=== PATIENT | female | born 1980 | race Caucasian/White ===

== ENCOUNTER 2020-09-11 17:30 | Emergency (ER) | payer SELFPAY ==
[~2020-09-11] VITALS: Ht 157.5 cm; Wt 59.0 kg
--- NOTE | 2020-09-11 17:40 | NUR ---
CAME IN FOR RIGHT SIDED NECK PAIN X 4 DAYS ,DENIES ANY TRAUMA. TO ER BED 9, HOOKED TO MONITOR. VSS. AWAITING MD MINOR
--- NOTE | 2020-09-11 18:04 | NUR ---
DR ALFONSO AT BEDSIDE
[2020-09-11 18:22] LABS: BASOPHILS % (AUTO) 0.8 % (0.0-2.0); EOSINOPHILS % (AUTO) 2.8 % (0.0-6.0); HEMATOCRIT 33 % (33-45); HEMOGLOBIN 10.4 g/dL (11.5-14.8); LYMPHOCYTES # (AUTO) 1.1 /CMM (0.8-4.8); LYMPHOCYTES % (AUTO) 21.5 % (20.0-44.0); MEAN CORPUSCULAR HGB CONC 32 g/dl (31.0-36.0); MEAN CORPUSCULAR VOLUME 84 fL (82-100); MONOCYTES # (AUTO) 0.6 /CMM (0.1-1.30); NEUTROPHILS # (AUTO) 3.1 /CMM (1.8-8.9); NEUTROPHILS % (AUTO) 62.9 % (43.0-81.0); PLATELET COUNT (AUTO) 236 /CMM (150-450); RED BLOOD CELL COUNT(AUTO) 3.89 MIL/uL (4.0-5.2)
[2020-09-11 18:38] LABS: ALANINE AMINOTRANSFERASE 24 U/L (12-78); ALBUMIN 3.3 g/dL (3.4-5.0); ALKALINE PHOSPHATASE 54 U/L (46-116); ASPARTATE AMINOTRANSFERASE 21 U/L (15-37); BILIRUBIN,DIRECT 0.1 mg/dL (0.0-0.2); BILIRUBIN,TOTAL 0.2 mg/dL (0.2-1.0); CALCIUM, SERUM 8.5 mg/dL (8.5-10.1); CARBON DIOXIDE 24 mmol/L (21-32); CHLORIDE 105 mmol/L (98-107); CREATININE 0.7 mg/dL (0.6-1.3); GLUCOSE 90 mg/dL (74-106); LIPASE 102 U/L (73-393); POTASSIUM 3.9 mmol/L (3.5-5.1); SODIUM SERUM 136 mmol/L (136-145); TOTAL PROTEIN, SERUM 7.5 g/dL (6.4-8.2); UREA NITROGEN, BLOOD 15 mg/dL (7-18)
[2020-09-11] MEDS ORDERED: IOHEXOL-300 100 ML VIAL IV ONE (18:41)
[2020-09-11] MEDS ORDERED: IV NS 0.9% 250 ML IV ONE (18:41)
[2020-09-11] MEDS ORDERED: CT SWABBABLE VALVE TRANS SET 1 EA INFUS.SET MC ONE (18:41)
[2020-09-11] MEDS ORDERED: ACETAMINOPHEN 325 MG TABLET ONE (18:48)
--- NOTE | 2020-09-11 18:54 | NUR ---
RECEIVED VERBAL ORDER FROM DR ALFONSO OF TORADOL 15MG IVP, CARRIED OUT
[2020-09-11] MEDS ORDERED: KETOROLAC TROMETHAMINE 15 MG/ML VIAL ONE (18:55)
[2020-09-11] MEDS: ACETAMINOPHEN 325 MG TABLET PO ONE (18:56)
[2020-09-11] MEDS: KETOROLAC TROMETHAMINE INJ 30 MG/ML VIAL IV ONE (18:59)
--- NOTE | 2020-09-11 19:10 | NUR ---
patient refuses to be brought to CT scan unless given pain medication
--- NOTE | 2020-09-11 19:43 | NUR ---
report given to richard crandall for lisbeth
--- NOTE | 2020-09-11 19:59 | NUR ---
PATIENT SPOKE WITH ROSALEE BARTHOLOMEW REGARDING, "I WILL GO TO CT IF THAT IS WHAT IT TAKES TO GET MY PAIN MED BECAUSE I CAN'T EVEN SWALLOW RIGHT NOW".
--- NOTE | 2020-09-11 20:00 | NUR ---
PATIENT TAKEN TO CT VIA GURNEY.
--- NOTE | 2020-09-11 20:09 | NUR ---
PATIENT RETURNED FROM CT.
[2020-09-11] MEDS ORDERED: NAPR-1009 PO (21:09)
[2020-09-11] MEDS ORDERED: HYDR-4384 PO (21:09)
[2020-09-11] MEDS ORDERED: AMOX-430 PO (21:09)
[2020-09-11] MEDS ORDERED: AMOX/CLAVULANATE 875 MG TABLET ONE (21:11)
[2020-09-11] MEDS ORDERED: HYDROCODONE/APAP 5/325MG TABLET ONE (21:11)
[2020-09-11] MEDS ORDERED: NAPROXEN 250 MG TABLET ONE (21:11)
[2020-09-11] MEDS: NAPROXEN 500 MG TABLET PO SCH (21:16)
[2020-09-11] MEDS: AMOX/CLAVULANATE 875 MG TABLET PO ONE (21:16)
[2020-09-11] MEDS: HYDROCODONE/APAP 5/325MG TABLET PO ONE (21:16)
--- NOTE | 2020-09-11 21:18 | NUR ---
PATIENT CALLING FOR SON TO PICK HER UP.
[2020-09-11 21:37] VITALS: BP 123/75
== END 2020-09-11 21:37 | disposition home or self-care (01) ==
LOC: ER 17:36
DX: J03.90 Acute tonsillitis, unspecified (principal); R07.0 Pain in throat; M32.9 Systemic lupus erythematosus, unspecified; Z79.899 Other long term (current) drug therapy
CPT/HCPCS: 36415; 70491; 80048; 80076; 83690; 84484; 84703; 85025; 96374; 99285; J1885; J7050; Q9967

== ENCOUNTER 2021-09-05 07:07 | Emergency (ER) | payer SELFPAY ==
[~2021-09-05] VITALS: Ht 157.5 cm; Wt 59.0 kg
[~2021-09-05 07:07] MED LIST: AMOX-430 PO; HYDR-4384 PO; NAPR-1009 PO
--- NOTE | 2021-09-05 07:25 | NUR ---
BIB SELF C/O CHEST PAIN RADIATING TO L ARM PS 10/10 AND L LEG PAIN SINCE LAST NIGHT. ADMITS SOB. PT REPORTS "EVERYTHING HURTS AND I HAVE LUPUS. AAOX4, BREATHING EVEN AND UNLABORED. SKIN WARM AND DRY. ASSISTED TO ER BE 12, HELPED TO GOWN. ON MONITOR.
[2021-09-05] MEDS ORDERED: MORPHINE SULFATE INJ 4 MG/ML DISP.SYRIN ONE (08:29)
[2021-09-05] MEDS ORDERED: KETOROLAC TROMETHAMINE INJ 30 MG/ML VIAL IV ONE (08:30)
[2021-09-05] MEDS ORDERED: MORPHINE SULFATE INJ 2 MG/ML DISP.SYRIN IV ONE (08:30)
--- NOTE | 2021-09-05 08:30 | NUR ---
YOLIS SAMPLE OBTAINED AND HANDED TO LAB
[2021-09-05 08:36] LABS: BASOPHILS % (AUTO) 0.3 % (0.0-2.0); EOSINOPHILS % (AUTO) 0.9 % (0.0-6.0); HEMATOCRIT 31 % (33-45); HEMOGLOBIN 10.2 g/dL (11.5-14.8); LYMPHOCYTES # (AUTO) 0.3 K/uL (0.8-4.8); LYMPHOCYTES % (AUTO) 6.4 % (20.0-44.0); MEAN CORPUSCULAR HGB CONC 33 g/dl (31.0-36.0); MEAN CORPUSCULAR VOLUME 86 fL (82-100); MONOCYTES # (AUTO) 0.6 K/uL (0.1-1.30); NEUTROPHILS # (AUTO) 4.3 K/uL (1.8-8.9); NEUTROPHILS % (AUTO) 81.4 % (43.0-81.0); PLATELET COUNT (AUTO) 242 K/uL (150-450); RED BLOOD CELL COUNT(AUTO) 3.66 MIL/uL (4.0-5.2); WHITE BLOOD COUNT (AUTO) 5.3 K/uL (4.3-11.0)
[2021-09-05 08:53] LABS: D-DIMER 0.3 mg/L(FEU (0.17-0.50)
[2021-09-05 09:12] LABS: CALCIUM, SERUM 9.4 mg/dL (8.5-10.1); CARBON DIOXIDE 22 mmol/L (21-32); CHLORIDE 103 mmol/L (98-107); CREATININE 0.8 mg/dL (0.6-1.3); GLUCOSE 91 mg/dL (74-106); POTASSIUM 3.9 mmol/L (3.5-5.1); SODIUM SERUM 138 mmol/L (136-145); UREA NITROGEN, BLOOD 9 mg/dL (7-18)
[2021-09-05] MEDS ORDERED: IV NS 0.9% 250 ML IV ONE (09:16)
[2021-09-05] MEDS ORDERED: IOHEXOL-350 100 ML VIAL IV ONE (09:16)
[2021-09-05] MEDS ORDERED: HYDROMORPHONE 1 MG/1 ML DISP.SYRIN ONE (09:17)
[2021-09-05] MEDS ORDERED: HYDROMORPHONE 1 MG/1 ML DISP.SYRIN IV ONE (09:30)
[2021-09-05] MEDS ORDERED: ONDANSETRON HCL/PF 4 MG/2 ML VIAL ONE (09:36)
--- NOTE | 2021-09-05 09:37 | NUR ---
PT LAYIGN IN BED, VS STABLE
[2021-09-05] MEDS ORDERED: ONDANSETRON HCL/PF 4 MG/2 ML VIAL IM ONE (10:00)
--- NOTE | 2021-09-05 10:46 | NUR ---
VS STABLE, HEAD OF BED ADJUISTED FOR COMFORT, ADDITIONAL BLANKETS GIVEN
--- NOTE | 2021-09-05 11:07 | NUR ---
PT CONTINUES TO C/O GENERALIZED PAIN. MD BENTON
[2021-09-05] MEDS ORDERED: TRAMADOL HCL 50 MG TABLET PO ONE (11:30)
[2021-09-05] MEDS ORDERED: TRAMADOL HCL 50 MG TABLET ONE (11:36)
--- NOTE | 2021-09-05 11:44 | NUR ---
DR LAWRENCE AT BEDSIDE
[2021-09-05] MEDS ORDERED: HYDR-4209 PO (11:51)
[2021-09-05] MEDS ORDERED: PRED50TA PO (11:51)
[2021-09-05] MEDS ORDERED: methylPREDNISolone SOD SUCC 125 MG/2ML VIAL ONE (11:58)
[2021-09-05] MEDS ORDERED: methylPREDNISolone SOD SUCC 125 MG/2ML VIAL IV ONE (12:00)
--- NOTE | 2021-09-05 12:00 | NUR ---
PT REPORTS THAT IMPROVED. PS 01/28. WILL CONTINUE TO MONITOR
--- NOTE | 2021-09-05 12:15 | NUR ---
Patient discharged to home in stable condition. Written and verbal after care instructions given. Patient verbalizes understanding of instruction.
--- NOTE | 2021-09-05 12:15 | NUR ---
IV removed. Catheter intact and site benign. Pressure and 4x4 applied to site. No bleeding noted.
[2021-09-05 12:18] VITALS: BP 110/76
== END 2021-09-05 12:19 | disposition home or self-care (01) ==
LOC: ER 07:17
DX: R07.89 Other chest pain (principal); M79.606 Pain in leg, unspecified; M32.9 Systemic lupus erythematosus, unspecified; Z79.899 Other long term (current) drug therapy
CPT/HCPCS: 36415; 71045; 71275; 80048; 83880; 84484; 84702; 85025; 85378; 85730; 93005 ×3; 93970; 96374; 96375; 99291; J1170; J2270; J2405; J2930; J7050; Q9967

== ENCOUNTER 2021-10-11 18:44 | Emergency (ER) | payer MEDICAID ==
[~2021-10-11] VITALS: Ht 157.5 cm; Wt 61.2 kg
[~2021-10-11 18:44] MED LIST changes: +HYDR-4209 PO; +PRED50TA PO
--- NOTE | 2021-10-11 19:10 | NUR ---
URINE SAMPLE SENT TO LAB
--- NOTE | 2021-10-11 19:20 | NUR ---
KRYSTEN THIS 41YO FEMALE PATIENT AMBULATORY. CC OF EPIGASTRIC PAIN X 1 MONTH, WITH BLE PAIN X 3 DAYS FOLLOWING TRIP TO [place] WITH 5 HOURS FLY TIME. PATIENT IS ON 10/10 PAIN SCALE ON BLE AREA AND ABDOMINAL PAIN
[2021-10-11] MEDS ORDERED: ONDANSETRON HCL/PF 4 MG/2 ML VIAL IVP ONE (19:30)
[2021-10-11] MEDS ORDERED: methylPREDNISolone SOD SUCC 125 MG/2ML VIAL IV ONE (19:30)
--- NOTE | 2021-10-11 19:39 | NUR ---
LEFT FOREARM G20 IV CANNULA INSERTED. BLOOD DRAWN AND SENT TO LAB
[2021-10-11] MEDS ORDERED: ONDANSETRON HCL/PF 4 MG/2 ML VIAL ONE (19:47)
[2021-10-11] MEDS ORDERED: MORPHINE SULFATE INJ 4 MG/ML DISP.SYRIN ONE (19:47)
[2021-10-11] MEDS ORDERED: methylPREDNISolone SOD SUCC 125 MG/2ML VIAL ONE (19:47)
[2021-10-11] MEDS: MORPHINE SULFATE INJ 2 MG/ML DISP.SYRIN IV ONE ×2 (20:00→20:25)
[2021-10-11] MEDS ORDERED: LIDOCAINE VISCOUS 2% UD 15 ML UDC ONE (20:25)
[2021-10-11] MEDS ORDERED: MAG HYDROX/AL HYDROX/SIMETH 30 ML UDC ONE (20:25)
[2021-10-11 20:28] LABS: BASOPHILS # (AUTO) 0.1 K/uL (0.0-0.2); BASOPHILS % (AUTO) 0.8 % (0.0-2.0); EOSINOPHILS % (AUTO) 3.2 % (0.0-6.0); HEMATOCRIT 32 % (33-45); HEMOGLOBIN 10.2 g/dL (11.5-14.8); LYMPHOCYTES % (AUTO) 26.1 % (20.0-44.0); MEAN CORPUSCULAR HGB CONC 33 g/dl (31.0-36.0); MEAN CORPUSCULAR VOLUME 84 fL (82-100); MONOCYTES # (AUTO) 0.8 K/uL (0.1-1.30); MONOCYTES % (AUTO) 10.7 % (2.0-12.0); NEUTROPHILS # (AUTO) 4.5 K/uL (1.8-8.9); NEUTROPHILS % (AUTO) 59.2 % (43.0-81.0); PLATELET COUNT (AUTO) 355 K/uL (150-450); RED BLOOD CELL COUNT(AUTO) 3.73 MIL/uL (4.0-5.2); WHITE BLOOD COUNT (AUTO) 7.6 K/uL (4.3-11.0)
[2021-10-11] MEDS ORDERED: MAG HYDROX/AL HYDROX/SIMETH 30 ML UDC PO ONE (20:30)
--- NOTE | 2021-10-11 20:30 | NUR ---
IV MEDICATIONS GIVEN THROUGH LEFT FOREARM G20 CANNULA
[2021-10-11 20:31] LABS: CALCIUM, SERUM 8.7 mg/dL (8.5-10.1); CREATININE 0.7 mg/dL (0.6-1.3); POTASSIUM 3.7 mmol/L (3.5-5.1)
[2021-10-11 20:32] LABS: BILIRUBIN,URINE NEGATIVE (NEGATIVE); COLOR,URINE YELLOW (YELLOW); LEUKOCYTE ESTERASE ,URINE NEGATIVE (NEGATIVE); NITRITE, URINE NEGATIVE (NEGATIVE); PH,URINE >8.5 (5.0-8.0); PROTEIN,URINE 100 mg/dl (NEGATIVE); UGLUCOSE NEGATIVE (NEGATIVE); UROBILINOGEN,URINE 0.2 EU/dL (0.2)
[2021-10-11 20:37] LABS: BACTERIA,URINE None seen /HPF (None Seen); RBC,URINE 0-2 /HPF (0-2); URINE AMORPHOUS PHOSPHATES Many /HPF (None Seen); WBC,URINE 0-2 /HPF (0-3)
[2021-10-11] MEDS: LIDOCAINE VISCOUS 2% UD 15 ML UDC MM ONE ×2 (20:45→20:50)
--- NOTE | 2021-10-11 20:45 | NUR ---
GI COCKTAIL GIVEN PO.
[2021-10-11] MEDS ORDERED: KETOROLAC TROMETHAMINE INJ 30 MG/ML VIAL IV ONE (21:00)
[2021-10-11] MEDS ORDERED: KETOROLAC TROMETHAMINE INJ 30 MG/ML VIAL ONE (21:04)
[2021-10-11 21:38] LABS: BILIRUBIN,TOTAL 0.1 mg/dL (0.2-1.0)
[2021-10-11 21:39] LABS: ALBUMIN 3.5 g/dL (3.4-5.0); TOTAL PROTEIN, SERUM 7.2 g/dL (6.4-8.2)
[2021-10-11] MEDS ORDERED: OMEP20CA15 PO ×2 (21:43→21:54)
[2021-10-11] MEDS ORDERED: NAPR-1009 PO (21:43)
[2021-10-11] MEDS ORDERED: PRED50TA PO ×2 (21:43→21:54)
[2021-10-11] MEDS ORDERED: NAPR500T6 PO (21:54)
--- NOTE | 2021-10-11 21:55 | NUR ---
Patient discharged to home in stable condition. Written and verbal after care instructions given. Patient verbalizes understanding of instruction.
[2021-10-11 21:56] VITALS: BP 112/78
== END 2021-10-11 21:57 | disposition home or self-care (01) ==
LOC: ER 18:48
DX: M32.9 Systemic lupus erythematosus, unspecified (principal); M79.605 Pain in left leg; M79.604 Pain in right leg; Z88.6 Allergy status to analgesic agent; Z79.899 Other long term (current) drug therapy
CPT/HCPCS: 36415; 80048; 80076; 81001; 83690; 84703; 85025; 93970; 96374; 96375; 99284; J1885; J2270; J2405; J2930

== ENCOUNTER 2023-01-17 21:34 | Emergency (ER) | payer MEDICAID, OTHER ==
[~2023-01-17] VITALS: Ht 160 cm; Wt 65.8 kg
[~2023-01-17 21:34] MED LIST changes: -NAPR-1009 PO; +NAPR500T6 PO; +OMEP20CA15 PO
--- NOTE | 2023-01-17 21:35 | NUR ---
Bibself from home c/o body pain from lupus flare up. Pt A/Ox4. Tolerating R/A well with no resp. distress. Safety measures in place.
[2023-01-17] MEDS ORDERED: IV NS 0.9% 1,000 ML BAG IV ONE (22:00)
[2023-01-17] MEDS ORDERED: methylPREDNISolone SOD SUCC 125 MG/2ML VIAL IV ONE (22:30)
[2023-01-17] MEDS ORDERED: methylPREDNISolone SOD SUCC 125 MG/2ML VIAL ONE (22:34)
[2023-01-17] MEDS ORDERED: ONDANSETRON HCL/PF 4 MG/2 ML VIAL ONE (22:34)
--- NOTE | 2023-01-17 22:35 | NUR ---
IV L WRIST #22G S/L BLOOD COLLECTED AND SENT TO LAB
--- NOTE | 2023-01-17 22:42 | NUR ---
PLUMBING ENGINEER AT PT'S BEDSIDE
[2023-01-17] MEDS ORDERED: ONDANSETRON HCL/PF - ER 4 MG/2 ML VIAL IV ONE (23:00)
[2023-01-17 23:06] LABS: BASOPHILS # (AUTO) 0.1 K/uL (0.0-0.2); BASOPHILS % (AUTO) 0.9 % (0.0-2.0); EOSINOPHILS % (AUTO) 4.3 % (0.0-6.0); HEMATOCRIT 32 % (33-45); HEMOGLOBIN 10.5 g/dL (11.5-14.8); LYMPHOCYTES # (AUTO) 2.1 K/uL (0.8-4.8); LYMPHOCYTES % (AUTO) 33.9 % (20.0-44.0); MEAN CORPUSCULAR HGB CONC 33 g/dl (31.0-36.0); MEAN CORPUSCULAR VOLUME 81 fL (82-100); MONOCYTES # (AUTO) 0.8 K/uL (0.1-1.30); MONOCYTES % (AUTO) 12.9 % (2.0-12.0); NEUTROPHILS # (AUTO) 2.9 K/uL (1.8-8.9); PLATELET COUNT (AUTO) 312 K/uL (150-450); RED BLOOD CELL COUNT(AUTO) 3.95 MIL/uL (4.0-5.2); WHITE BLOOD COUNT (AUTO) 6.1 K/uL (4.3-11.0)
[2023-01-17] MEDS ORDERED: ONDA4TAB11 PO (23:08)
[2023-01-17] MEDS ORDERED: METH4TAB17 PO (23:08)
[2023-01-17 23:14] VITALS: BP 108/67
--- NOTE | 2023-01-17 23:16 | NUR ---
Patient discharged to home in stable condition. RX Written and verbal after care instructions given. Patient verbalizes understanding of instruction. IV removed. Catheter intact and site benign. Pressure and 4x4 applied to site. No bleeding noted.
[2023-01-17 23:17] LABS: CALCIUM, SERUM 9.1 mg/dL (8.5-10.1); CREATININE 0.7 mg/dL (0.6-1.3); POTASSIUM 4.2 mmol/L (3.5-5.1)
== END 2023-01-17 23:16 | disposition home or self-care (01) ==
LOC: ER 21:38
DX: M32.9 Systemic lupus erythematosus, unspecified (principal); Z79.899 Other long term (current) drug therapy; Z88.1 Allergy status to other antibiotic agents
CPT/HCPCS: 99285; 96374; 71045; 96361; 96375; 93005; 85025; 80048; 36415; J2930; J2405 ×2; J7030

== ENCOUNTER 2023-06-25 18:44 | Emergency (ER) | payer OTHER ==
[~2023-06-25] VITALS: Ht 157.5 cm; Wt 64.4 kg
[~2023-06-25 18:44] MED LIST changes: +METH4TAB17 PO; +ONDA4TAB11 PO
[2023-06-25] MEDS ORDERED: PRED50TA PO (19:18)
[2023-06-25] MEDS ORDERED: HYDR-4303 PO (19:18)
[2023-06-25] MEDS ORDERED: predniSONE 20 MG TABLET ONE (19:54)
[2023-06-25] MEDS ORDERED: predniSONE 50 MG TABLET PO ONE (20:00)
[2023-06-25 20:26] VITALS: BP 128/80; TEMP 98; O2SAT 99
== END 2023-06-25 20:27 | disposition home or self-care (01) ==
LOC: ER 18:53
DX: M32.9 Systemic lupus erythematosus, unspecified (principal); Z79.899 Other long term (current) drug therapy; Z88.5 Allergy status to narcotic agent
CPT/HCPCS: 99283; J7512

== ENCOUNTER 2023-12-05 08:24 | Emergency (ER) | payer OTHER ==
[~2023-12-05] VITALS: Ht 157.5 cm; Wt 65.8 kg
[2023-12-05 08:24] VITALS: BP 139/75; TEMP 98.3
[~2023-12-05 08:24] MED LIST changes: +HYDR-4303 PO
[2023-12-05] MEDS ORDERED: HYDROCODONE/APAP 5/325MG TABLET ONE (08:39)
[2023-12-05] MEDS: HYDROCODONE/APAP 5/325MG TABLET PO ONE (08:41)
[2023-12-05] MEDS ORDERED: AMOX-430 PO (08:45)
[2023-12-05] MEDS ORDERED: HYDR-4303 PO (08:45)
[2023-12-05] MEDS ORDERED: HYDR-4209 PO (08:53)
[2023-12-05 09:01] VITALS: O2SAT 98
== END 2023-12-05 08:59 | disposition home or self-care (01) ==
LOC: ER 08:30
DX: K02.9 Dental caries, unspecified (principal); Z88.8 Allergy status to other drugs, medicaments and biological substances; Z79.899 Other long term (current) drug therapy